=== PATIENT | female | born 1995 | race Two or more races ===

== ENCOUNTER → 2024-12-06 | Outpatient (CLI) | payer OTHER, SELFPAY ==
--- NOTE | 2024-12-06 16:43 | XR_ITS ---
Examination: PA lateral chest 2 views TECHNIQUE: Upright PA lateral chest 2 views Exam date and time: December 06, 2024 1704 hours Comparison August 11, 2021 INDICATIONS: Coughing beginning 2 weeks ago. FINDINGS: Scarring versus atelectasis in both lower lung zones and lingular segment Normal heart size Mild elevation right hemidiaphragm No current pneumonia or pulmonary edema Intact osseous structures IMPRESSION: Scarring in both lower lung zones Consider high resolution CT chest without contrast follow-up
== END | disposition home or self-care (01) ==
PROVIDERS: PCP Nurse Practitioner Family; Referring Provider Nurse Practitioner Family; Visit Provider Nurse Practitioner Family
DX: R91.8 Other nonspecific abnormal finding of lung field (principal); Z79.890 Hormone replacement therapy; Z86.16 Personal history of COVID-19
CPT/HCPCS: 71046

== ENCOUNTER → 2025-01-02 | Outpatient (CLI) | payer OTHER, SELFPAY ==
[2025-01-02 15:32] LABS: HCG Qualitative,Urine Negative
--- NOTE | 2025-01-02 17:00 | XR_ITS ---
Examination: CT chest, without intravenous contrast. Sagittal and coronal 2-D reconstructions. Exam date and time: January 02, 2025 1647 hrs. Indications: Coughing congestion beginning 2 weeks ago, diagnosis strep throat proximal pharyngitis CTDI:vol (mGy) 12.8 DLP: (mGycm) 430 Technique: Multiple 3.0 mm axial sections of the chest to been obtained. Bone and lung density settings are obtained. Sagittal and coronal 2-D reconstructions have been obtained. Low dose protocols were performed. One or more of the following dose reduction techniques were used; automated exposure control, adjustment of the mA and/or KV according to patient size, use of iterative reconstruction technique. Findings: No thoracic aortic aneurysm dilatation Pulmonary artery segments are not enlarged. No paratracheal tracheobronchial or bronchopulmonary adenopathy Interstitial disease throughout the lungs consistent with pulmonary fibrosis, mild to moderate No pulmonary edema or faith lobar pneumonia Severe diffuse fatty infiltration throughout the liver The liver is enlarged but incompletely visualized Spleen is nonremarkable No pancreatic or adrenal mass Kidneys partially visualized no hydronephrosis Impression: [id number] pulmonary fibrosis No faith lobar pneumonia Hepatomegaly with severe diffuse fatty infiltration throughout the liver
== END | disposition home or self-care (01) ==
LOC: CCTX 14:58 → COPL 15:07
PROVIDERS: Referring Provider Nurse Practitioner Family; Visit Provider Radiology Diagnostic Radiology
DX: J84.10 Pulmonary fibrosis, unspecified (principal); K76.0 Fatty (change of) liver, not elsewhere classified; Z32.00 Encounter for pregnancy test, result unknown
CPT/HCPCS: 71271; 81025

== ENCOUNTER 2025-04-24 05:21 | Emergency (ER) | payer OTHER, SELFPAY ==
[2025-04-24 05:23] VITALS: BMI 38.0
[2025-04-24 05:30] VITALS: BP 127/85; PULSE 73; RESP 20; TEMP 36.7; O2SAT 95
--- NOTE | 2025-04-24 05:41 | PD.EDRME ---
Rapid Medical Screening Exam RME Arrival date/time: 04/24/25 05:21 Chief Complaint: Chest Pain Time Seen by Provider: 04/24/25 05:37 Vital signs: Vital Signs Temperature 98.1 F 04/24/25 05:30 Pulse Rate 73 04/24/25 05:30 Respiratory Rate 20 04/24/25 05:30 Blood Pressure 127/85 H 04/24/25 05:30 Pulse Oximetry (%) 95 04/24/25 05:30 Oxygen Delivery Method Room Air 04/24/25 05:30 Vital signs reviewed by provider: Yes RME Narrative: 29-year-old female presents to the ED with a complaint of right anterior chest pain with associated shortness of breath. She states the pain began around midnight, when she was at rest. The pain is exacerbated by movement and deep breaths. She has a past medical history of ARDS and acute respiratory failure secondary to pneumonia from COVID. I have greeted and performed a focused initial assessment of this patient. A comprehensive ED assessment and evaluation of the patient, analysis of all test results, and completion of the medical decision making process will be conducted by additional ED providers.
--- NOTE | 2025-04-24 05:45 | XR_ITS ---
Examination: PA lateral chest 2 views TECHNIQUE: Upright PA and lateral chest 2 views Date and time: April 24, 2025 0551 hours Comparison December 06, 2024 INDICATIONS: Chest pain radiating midnight. FINDINGS: Mild prominence left ventricle Abnormal interstitial disease in the mid and lower lung zones, also noted on the December 06, 2024 exam, consider pulmonary fibrosis No faith pulmonary edema The osseous structures are intact IMPRESSION: Abnormal interstitial disease throughout the lungs suspicious for pulmonary fibrosis Consider an elective CT chest without intravenous contrast follow-up
--- NOTE | 2025-04-24 06:38 | EKG_ITS ---
[facility] Test Date: 2025-04-24 Pat Name: PABLO FLYNN Department: Room: - Gender: Female [employer] Supervisor: : [id number] Requested By: Brian Yuen (BON) Order Number: [id number] Reading MD: Brian Yuen (WAITRESS) Measurements Intervals [place] Rate: 70 P: 42 MS: 187 QRS: 48 QRSD: 89 T: 1 QT: 373 QTc: 405 Interpretive Statements SINUS RHYTHM POSSIBLE RIGHT VENTRICULAR CONDUCTION DELAY [RSR (QR) IN V1/V2] NONSPECIFIC T-WAVE ABNORMALITY Compared to ECG 08/11/2021 09:30:03 Sinus tachycardia no longer present T-wave abnormality still present /store/S0/[id number]/ecg/[id number].pdf
--- NOTE | 2025-04-24 06:47 | PD.EDCHEST ---
ED Chest Pain RME/HPI General Chief Complaint: Chest Pain Stated Complaint: R SIDE CHEST PAIN Time Seen by Provider: 04/24/25 05:37 Arrival date/time: 04/24/25 05:21 29-year-old female presents to the ED with a complaint of right anterior chest pain with associated shortness of breath. She states the pain began around midnight, when she was at rest. The pain is exacerbated by movement and deep breaths. She has a past medical history of ARDS and acute respiratory failure secondary to pneumonia from COVID. Limitations: no limitations RME / HPI RME / HPI narrative: 29-year-old female presents to the ED with a complaint of right anterior chest pain with associated shortness of breath. She states the pain began around midnight, when she was at rest. The pain is exacerbated by movement and deep breaths. She has a past medical history of ARDS and acute respiratory failure secondary to pneumonia from COVID. I have greeted and performed a focused initial assessment of this patient. A comprehensive ED assessment and evaluation of the patient, analysis of all test results, and completion of the medical decision making process will be conducted by additional ED providers. Related Data Allergies Allergy/AdvReac Type Severity Reaction Status Date / Time No Known Allergies Allergy Verified 04/24/25 05:24 Review of Systems Review of Systems Systems Reviewed: All systems reviewed, normal except as documented Constitutional Constitutional: Reports system reviewed and no additional complaints, except as documented, Denies fever(s) and Denies headache(s) Eyes Eyes: Reports system reviewed and no additional complaints, except as documented and Denies blurry vision ENT Ears, Nose, Mouth, and Throat: Reports system reviewed and no additional complaints, except as documented, Denies headache(s), Denies nasal congestion and Denies nasal discharge Cardiovascular Cardiovascular: Reports system reviewed and no additional complaints, except as documented, Reports chest pain and Denies dyspnea Respiratory Respiratory: Reports system reviewed and no additional complaints, except as documented, Denies chest congestion, Denies cough and Denies dyspnea Gastrointestinal Gastrointestinal: Reports system reviewed and no additional complaints, except as documented and Denies abdominal pain Integumentary/Breasts Skin/Breast: Reports system reviewed and no additional complaints, except as documented and Denies rash Neurologic Neurologic: Reports system reviewed and no additional complaints, except as documented, Reports as per HPI and Denies headache(s) Past Medical History Past Medical History CARDIAC: Negative Congestive Heart Failure RESPIRATORY: Negative Chronic Obstructive Pulmonary Disease (COPD) GENITOURINARY: Negative Renal Disease ENDOCRINE: Negative Diabetes Mellitus Type 1 or Diabetes Mellitus Type 2 Social History SMOKING STATUS: Never smoker SUBSTANCE USE: does not use ED Exam General Limitations: Present no limitations General appearance: Present alert and in no apparent distress Head Head exam: Present atraumatic, normocephalic and normal inspection Eye Eye exam: Present normal appearance, PERRL and EOMI; Absent conjunctival injection ENT ENT exam: Present normal exam, normal oropharynx and mucous membranes moist Neck Neck exam: Present normal inspection, full ROM and trachea midline Chest Chest inspection: Present normal inspection and symmetric chest wall rise Respiratory Respiratory exam: Present normal lung sounds bilaterally Cardiovascular Cardiovascular exam: Present regular rate, normal rhythm and normal heart sounds Abdominal Exam Abdominal exam: Present soft and normal bowel sounds Extremities Exam Extremities exam: Present normal inspection and full ROM Back Exam Back exam: Present normal inspection and full ROM Neurological Exam Neurological exam: Present alert, oriented X3 and CN II-XII intact Psychiatric Psychiatric exam: Present normal affect and normal mood Skin Skin exam: Present warm, dry, intact and normal color Course Quality Measures none Orders Category Date Time Status EKG (ED ONLY) *Do not use* NOW Care 04/24/25 06:39 Completed EKG (ED Only) Stat Exams 04/24/25 06:38 Draft XR chest 2V Stat Exams 04/24/25 05:45 Completed CBC Stat Lab 04/24/25 06:52 Completed CMP [Comprehensive Metabolic Panel] Stat Lab 04/24/25 06:52 Completed HCG,Qualitative Serum Stat Lab 04/24/25 06:52 Completed Troponin I Stat Lab 04/24/25 06:52 Completed Vital Signs Vital signs: Vital Signs Temperature 98.1 F 04/24/25 05:30 Pulse Rate 73 04/24/25 05:30 Respiratory Rate 20 04/24/25 05:30 Blood Pressure 127/85 H 04/24/25 05:30 Pulse Oximetry (%) 95 04/24/25 05:30 Oxygen Delivery Method Room Air 04/24/25 05:30 O2 saturation 95% room air with normal Procedures -ED EKG Interpretation #1: Date of EK04/24/25 Time of EK:42 Rate: 70 Interpretation: Interpreted by me EKG Impression: Normal sinus rhythm, No acute ST-T changes, No ectopy, No ischemic changes, Normal QRS, Normal intervals and Normal axis Chest Pain MDM Narrative MDM Narrative:: 29-year-old female presents to the ED with a complaint of right anterior chest pain with associated shortness of breath. She states the pain began around midnight, when she was at rest. The pain is exacerbated by movement and deep breaths. She has a past medical history of ARDS and acute respiratory failure secondary to pneumonia from COVID. On exam patient very well-appearing patient is not appear toxic patient smiling patient does not appear to be having any difficulty breathing Lab work and imaging obtained no acute emergent findings noted Patient discharged home in no distress to follow-up with primary care doctor in the next 24 to 48 hours and for any worsening symptoms to return to the ER immediately Patient data External records reviewed:: [facility] previous records Clinical information provided by:: patient Social determinants that could affect healthcare access:: none Patient has the following chronic illnesses:: See history How is presenting disease/condition affected by chronic disease/condition?: exacerbated by Evaluation data The following diagnostics were reviewed and interpreted by me:: lab results, radiology exam(s) and EKG tracing(s) Lab and/or radiology exams considered but not ordered:: Labs, radiology, EKG obtained Interpretation Summary: Reviewed by me Medications / Prescriptions Medications or Prescriptions considered but not ordered:: Given Medication administrations:: Given Consultations Consultation(s) initiated? (list below): No Diagnosis Chest Pain Differential Diagnosis: fracture of rib, pneumothorax, costochondritis and chest pain Most likely diagnosis given after review of the tests above:: Chest wall pain Admission Indicated Admission indicated?: not indicated Admission Request Was there a request for admission?: No Disposition Plan Disposition Plan: Discharge Discharge Attestation Discharge Attestation: The patient and all family members were given an opportunity to ask questions and understood the discharge instructions. Discharge instructions specifically effects, indications for sooner follow up or return to the emergency department, and the expected course of current diagnosis. Patient condition: Stable Discharge Plan Plan Patient Disposition: HOME (Self Care) Discharge Disposition comment: Stable Prescriptions/Referrals Referrals: Reinaldo Cheng PA-C [Primary Care Provider] - 04/25/25 Problem List Clinical Impression: Chest pain, non-cardiac, Elevated liver transaminase level Patient/Caregiver Discharge Instructions Education Materials: Measuring Your Pain Additional Instructions: Please follow up with your primary care doctor in the next 24-48hrs for any worsening symptoms return here immediately Print Language: Swedish Stand Alone Forms: Kayla Award Info., Work/School Release, Patient Portal Info Letter PA/UTILIZATION REVIEWER Supervising Physician PA/UTILIZATION REVIEWER Supervising Physician: Dr. chopra
[2025-04-24 07:08] LABS: Basophils % (Auto) 0 % (0-2.5); Eosinophils # (Auto) 0.1 Thou/mm3 (0.0-0.5); Eosinophils % (Auto) 2 % (0-10); Hematocrit 44.4 % (36.0-46.0); Hemoglobin 15.5 g/dL (12.0-16.0); Immature Granulocytes % (Auto) 1 % (0-0); Immature Granulocytes Auto 0.07 Thou/mm3 (0.00-0.00); Lymphocytes # (Auto) 2.5 Thou/mm3 (1.0-4.8); Lymphocytes % (Auto) 27 % (10-50); Mean Corpuscular HGB Conc 34.9 g/dl (31.0-37.0); Mean Corpuscular Hemoglobin 31.6 pg (25.0-35.0); Mean Corpuscular Volume 91 fL (80-100); Monocytes # (Auto) 0.6 Thou/mm3 (0.0-0.8); Monocytes % (Auto) 6 % (0-12); Neutrophils # (Auto) 5.7 Thou/mm3 (1.8-7.7); Neutrophils % (Auto) 64 % (37-80); Nucleated Red Blood Cell % 0 /100 WBC (0); Platelet Count 322 Thou/mm3 (140-440); RDW Standard Deviation 37.4 fL (36.4-46.3)
[2025-04-24 07:20] LABS: HCG,Qualitative Serum Negative
[2025-04-24 07:26] LABS: Alanine Aminotransferase 144 U/L (10-49); Albumin, Serum 4.6 gm/dL (3.5-5.0); Albumin/Globulin Ratio 1.8 (1.2-2.2); Alkaline Phosphatase 88 U/L (46-116); Anion Gap 8 (7-16); Aspartate Amino Transferase 56 U/L (0-34); BUN/Creatinine Ratio 7 Ratio (12-20); Blood Urea Nitrogen < 5 mg/dL (9-23); Calcium 9.2 mg/dL (8.3-10.6); Calcium (Corrected) 9.2 mg/dL (8.5-10.1); Carbon Dioxide 27.6 mMol/L (20.0-31.0); Chloride 103 mMol/L (98-107); Creatinine (Component) 0.7 mg/dL (0.6-1.3); Estimated Creatinine Clearance 118.4 mL/min (>60); Globulin 2.6 gm/dL (2.3-3.5); Glucose 154 mg/dL (74-106); Osmolality,Calculated 277 (275-295); Potassium 3.6 mMol/L (3.4-5.1); Sodium 139 mMol/L (136-145); Total Protein 7.2 gm/dL (5.7-8.2); Troponin I < 0.002 ng/mL (0.0-0.045); eGFR > 60 See Note
== END 2025-04-24 07:42 | disposition home or self-care (01) ==
PROVIDERS: Nurse Practitioner Primary Care; Emergency Provider Family Medicine; PCP Physician Assistant
DX: R07.89 Other chest pain (principal); R74.01 Elevation of levels of liver transaminase levels; Z86.16 Personal history of COVID-19; R94.31 Abnormal electrocardiogram [ECG] [EKG]
CPT/HCPCS: 36415; 71046; 80053; 84484; 84703; 85025; 93005; 99283